=== PATIENT | male | born 1975 | race Caucasian/White ===

== ENCOUNTER 2019-07-09 15:24 | Emergency (ER) | payer SELFPAY ==
[~2019-07-09] VITALS: Ht 160 cm; Wt 99.8 kg
[2019-07-09 15:41] VITALS: Ht 160 cm; Wt 99.8 kg
== END 2019-07-09 16:03 | disposition home or self-care (01) ==
LOC: ED 15:24
DX: R21 Rash and other nonspecific skin eruption (principal); L29.9 Pruritus, unspecified